=== PATIENT | female | born 1965 | race Caucasian/White ===

== ENCOUNTER 2018-06-17 20:12 | Emergency (ER) | payer SELFPAY ==
[2018-06-17 20:28] VITALS: TEMP 96.2
[2018-06-17] MEDS ORDERED: SOLUMEDROL 125 MG/2 ML 125 MG/2 ML PDS IV ONE (20:29)
[2018-06-17] MEDS ORDERED: ALBUTEROL/IPRATROPIUM 1 VIAL SOL INH ONE (20:29)
[2018-06-17] MEDS ORDERED: AZITHROMYCIN 250 MG TAB PO ONE (20:30)
[2018-06-17] MEDS ORDERED: ALBUTEROL/IPRATROPIUM 1 VIAL SOL ONE (20:38)
[2018-06-17] MEDS ORDERED: AZITHROMYCIN 250 MG TAB ONE (20:38)
[2018-06-17] MEDS ORDERED: SOLUMEDROL 125 MG/2 ML 125 MG/2 ML PDS ONE (20:38)
[2018-06-17 21:10] LABS: BASOPHILS % (AUTO) 1 % (0-3); EOSINOPHILS % (AUTO) 2 % (0-9); HEMATOCRIT 44 % (35-47); HEMOGLOBIN 13.8 gm/dl (12.0-15.5); LYMPHOCYTES % (AUTO) 27.9 % (10-50); MEAN CORPUSCULAR HEMOGLOBIN 26.8 pg (27.0-32.0); MEAN CORPUSCULAR HGB CONC 31.3 gm/dl (32.0-36.0); MEAN CORPUSCULAR VOLUME 85 fL (81-99); MONOCYTES % (AUTO) 10.3 % (0-12); NEUTROPHILS % (AUTO) 58.5 % (37-80)
[2018-06-17 21:11] LABS: INFLUENZA A NEGATIVE (NEGATIVE); INFLUENZA B NEGATIVE (NEGATIVE)
[2018-06-17 21:24] LABS: ALBUMIN 3.6 gm/dl (3.4-5.0); BILIRUBIN,TOTAL 0.3 mg/dl (0.2-1.0); CALCIUM 8.4 mg/dl (8.5-10.1); CARBON DIOXIDE 25.2 mEq/L (21-32); CREATININE 0.77 mg/dl (0.60-1.00); POTASSIUM 3.7 mMol/L (3.5-5.1); TOTAL PROTEIN 7.4 gm/dl (6.4-8.2)
[2018-06-17] MEDS ORDERED: ALBUTEROL NEB SOL 2.5MG/3ML 1 VIAL SOL NEB ONE (21:54)
[2018-06-17] MEDS ORDERED: ALBUTEROL NEB SOL 2.5MG/3ML 1 VIAL SOL ONE (21:56)
[2018-06-17 22:21] VITALS: PULSE 77; RESP 20; O2SAT 97
[2018-06-17 22:23] VITALS: BP 133/83
== END 2018-06-17 22:17 | disposition home or self-care (01) | DRG 204 ==
LOC: ED 20:12
DX: R06.02 Shortness of breath (principal); J45.31 Mild persistent asthma with (acute) exacerbation; R06.2 Wheezing; R05 Cough
CPT/HCPCS: 36415; 71046; 80053; 85025; 87804; 96374; 99283; 99284; J2930; J7613; A9270-GY

== ENCOUNTER 2019-01-31 20:08 | Inpatient (IN) | payer MEDICAID, OTHER ==
[2019-01-31] MEDS ORDERED: ALBUTEROL NEB SOL 2.5MG/3ML 1 VIAL SOL NEB ONE ×2 (20:44→21:39)
[2019-01-31] MEDS ORDERED: SOLUMEDROL 125 MG/2 ML 125 MG/2 ML PDS IV ONE (20:44)
[2019-01-31] MEDS ORDERED: SOLUMEDROL 125 MG/2 ML 125 MG/2 ML PDS ONE (20:46)
[2019-01-31] MEDS ORDERED: ALBUTEROL NEB SOL 2.5MG/3ML 1 VIAL SOL ONE ×2 (20:46→21:40)
[2019-01-31 21:02] LABS: BASOPHILS % (AUTO) 1 % (0-3); EOSINOPHILS % (AUTO) 2 % (0-9); HEMATOCRIT 46 % (35-47); HEMOGLOBIN 14.3 gm/dl (12.0-15.5); MEAN CORPUSCULAR HEMOGLOBIN 28.3 pg (27.0-32.0); MEAN CORPUSCULAR HGB CONC 31.3 gm/dl (32.0-36.0); MEAN CORPUSCULAR VOLUME 90 fL (81-99); MONOCYTES % (AUTO) 5.1 % (0-12); NEUTROPHILS % (AUTO) 75.1 % (37-80)
[2019-01-31 21:13] LABS: CALCIUM 8.3 mg/dl (8.5-10.1); CARBON DIOXIDE 23.6 mEq/L (21-32); CREATININE 0.72 mg/dl (0.60-1.00)
[2019-01-31] MEDS: SODIUM CHLORIDE 0.9% FLUSH 10 ML SOL IV PRN (21:40)
[2019-01-31] MEDS ORDERED: AZITHROMYCIN 500 MG PDS IV SCH (22:15)
[2019-01-31] MEDS ORDERED: AZITHROMYCIN 500 MG PDS IV ONE (22:20)
[2019-01-31] MEDS ORDERED: ALBUTEROL/IPRATROPIUM 1 VIAL SOL INH PRN (22:55)
[2019-01-31] MEDS ORDERED: SODIUM CHLORIDE 0.9% 1000ML 1,000 ML IV ONE (23:00)
[2019-01-31] MEDS ORDERED: ALBUTEROL NEB SOL 2.5MG/3ML 1 VIAL SOL NEB PRN (23:39)
[2019-02-01] MEDS ORDERED: ALBUTEROL HFA 60 PUFF/INHALER INH PRN (00:10)
[2019-02-01] MEDS: ALBUTEROL/IPRATROPIUM 1 VIAL SOL INH SCH ×4 (01:13→20:37)
[2019-02-01] MEDS: SOLUMEDROL 125 MG/2 ML 125 MG/2 ML PDS IV SCH ×4 (03:07→20:40)
[2019-02-01 07:34] LABS: BASOPHILS % (AUTO) 0 % (0-3); CALCIUM 8.3 mg/dl (8.5-10.1); CARBON DIOXIDE 23.3 mEq/L (21-32); CREATININE 0.52 mg/dl (0.60-1.00); EOSINOPHILS % (AUTO) 0 % (0-9); HEMATOCRIT 44 % (35-47); HEMOGLOBIN 13.4 gm/dl (12.0-15.5); LYMPHOCYTES % (AUTO) 14.9 % (10-50); MEAN CORPUSCULAR HGB CONC 30.6 gm/dl (32.0-36.0); MEAN CORPUSCULAR VOLUME 91 fL (81-99); MONOCYTES % (AUTO) 1.1 % (0-12); NEUTROPHILS % (AUTO) 83.8 % (37-80)
[2019-02-01] MEDS: SODIUM CHLORIDE 0.9% FLUSH 10 ML SOL IV SCH ×3 (09:30→20:41)
[2019-02-01] MEDS: TOPIRAMATE 50 MG TAB PO SCH ×2 (11:26→20:47)
[2019-02-01] MEDS: BUDESONIDE/FORMOTEROL 160/4.5 AER INH SCH ×2 (11:26→20:42)
[2019-02-01] MEDS: ACETAMINOPHEN 500 MG 500 MG TAB PO PRN (12:44)
[2019-02-01] MEDS: SODIUM CHLORIDE 0.9% FLUSH 10 ML SOL IV PRN (14:44)
[2019-02-02] MEDS: ALBUTEROL/IPRATROPIUM 1 VIAL SOL INH SCH ×4 (02:17→20:19)
[2019-02-02] MEDS: SODIUM CHLORIDE 0.9% FLUSH 10 ML SOL IV SCH ×4 (02:19→20:27)
[2019-02-02] MEDS: SOLUMEDROL 125 MG/2 ML 125 MG/2 ML PDS IV SCH ×4 (02:20→20:24)
[2019-02-02] MEDS ORDERED: CEFTRIAXONE 1 GM PDS ONE ×2 (09:05→20:09)
[2019-02-02] MEDS ORDERED: SODIUM CHLORIDE 0.9% 50 ML 50 ML IV ONE (09:05)
[2019-02-02] MEDS: CEFTRIAXONE 1 GM PDS 1 GM in SODIUM CHLORIDE 0.9% 50 ML 50 ML IV SCH ×2 (09:21→20:24)
[2019-02-02] MEDS: TOPIRAMATE 50 MG TAB PO SCH ×2 (09:22→20:25)
[2019-02-02] MEDS: BUDESONIDE/FORMOTEROL 160/4.5 AER INH SCH ×2 (09:45→20:24)
[2019-02-02 12:47] LABS: APPEARANCE,URINE Cloudy; BILIRUBIN,URINE NEGATIVE (NEGATIVE); COLOR,URINE Yellow; GLUCOSE, URINE (UA) NEGATIVE (NEGATIVE); KETONES,URINE NEGATIVE (NEGATIVE); LEUKOCYTE ESTERASE ,URINE TRACE (NEGATIVE); NITRATE,URINE NEGATIVE (NEGATIVE); OCCULT BLOOD,URINE NEGATIVE (NEG-TRACE); UROBILINOGEN,URINE 0.2 (0.2-1.0 EU)
[2019-02-02 12:56] LABS: BACTERIA 2+ (< 1+); CRYSTALS NEGATIVE (0-3 AVE/HPF); EPITHELIAL CELLS 0-2 (SQUAMOUS); RBC,URINE NEGATIVE (0-3AV/HPF); WBC,URINE 15-25 (0-5AV/HPF)
[2019-02-02] MEDS: SODIUM CHLORIDE 0.9% FLUSH 10 ML SOL IV PRN (14:11)
[2019-02-03] MEDS: SODIUM CHLORIDE 0.9% FLUSH 10 ML SOL IV SCH ×3 (00:59→17:18)
[2019-02-03] MEDS: ALBUTEROL/IPRATROPIUM 1 VIAL SOL INH SCH ×4 (02:23→19:55)
[2019-02-03] MEDS: SOLUMEDROL 125 MG/2 ML 125 MG/2 ML PDS IV SCH ×2 (02:23→08:29)
[2019-02-03] MEDS: ACETAMINOPHEN 500 MG 500 MG TAB PO PRN (02:27)
[2019-02-03] MEDS: SODIUM CHLORIDE 0.9% FLUSH 10 ML SOL IV PRN ×2 (02:30→21:23)
[2019-02-03 07:31] LABS: BASOPHILS % (AUTO) 0 % (0-3); EOSINOPHILS % (AUTO) 0 % (0-9); HEMATOCRIT 42 % (35-47); HEMOGLOBIN 13.1 gm/dl (12.0-15.5); LYMPHOCYTES % (AUTO) 7.5 % (10-50); MEAN CORPUSCULAR VOLUME 90 fL (81-99); MONOCYTES % (AUTO) 2.6 % (0-12); NEUTROPHILS % (AUTO) 89.5 % (37-80)
[2019-02-03 07:35] LABS: CALCIUM 8.9 mg/dl (8.5-10.1); CREATININE 0.69 mg/dl (0.60-1.00)
[2019-02-03] MEDS: TOPIRAMATE 50 MG TAB PO SCH (08:32)
[2019-02-03] MEDS: BUDESONIDE/FORMOTEROL 160/4.5 AER INH SCH ×2 (08:32→21:22)
[2019-02-03] MEDS: PREDNISONE 20 MG TAB PO SCH (10:06)
[2019-02-03] MEDS: AUGMENTIN(FRIDGE) 400 MG/5 ML PO SCH ×2 (10:07→21:22)
[2019-02-03] MEDS: BUPROPION XL 150 MG T24 PO SCH (16:13)
[2019-02-03] MEDS: TOPIRAMATE 25 MG TABLET PO SCH (21:22)
[2019-02-04] MEDS: ALBUTEROL/IPRATROPIUM 1 VIAL SOL INH SCH ×2 (03:20→08:05)
[2019-02-04] MEDS: AUGMENTIN(FRIDGE) 400 MG/5 ML PO SCH (08:09)
[2019-02-04 08:10] VITALS: O2SAT 93
[2019-02-04 08:12] VITALS: BP 144/85; RESP 18; TEMP 97.8
[2019-02-04 08:27] VITALS: PULSE 72
[2019-02-04] MEDS: BUDESONIDE/FORMOTEROL 160/4.5 AER INH SCH (08:54)
[2019-02-04] MEDS: TOPIRAMATE 25 MG TABLET PO SCH (08:55)
[2019-02-04] MEDS: BUPROPION XL 150 MG T24 PO SCH (08:56)
[2019-02-04] MEDS: PREDNISONE 20 MG TAB PO SCH (08:56)
== END 2019-02-04 12:15 | disposition home or self-care (01) | DRG 141 ==
LOC: ED 20:08 → ACUTE CARE 22:22 → UNDOADMOB 22:22 → ACUTE CARE 22:30 → OBSVTOIN 02-02 08:08 → INTOOBSV 02-02 08:08 → ACUTE CARE 02-02 08:30 → INTOOBSV 02-02 08:30 → UNDOADMOB 02-02 08:30 → OBSVTOIN 02-02 08:30 → UNDODISIN 02-04 12:15
PROVIDERS: ADMIT Family Medicine; ATTEND Family Medicine
DX: J45.901 Unspecified asthma with (acute) exacerbation (principal); J44.1 Chronic obstructive pulmonary disease with (acute) exacerbation; R05 Cough; R06.02 Shortness of breath; R06.00 Dyspnea, unspecified; Z72.0 Tobacco use
CPT/HCPCS: 36415; 71046; 80048; 81001; 85025; 87077; 87088; 87186; 87430; 94150; 94664; 96374; 99070; 99219; 99224; 99284; J0456; J0696; J2930; J7613; A9270-GY

== ENCOUNTER 2019-02-22 12:08 | Observation (INO) | payer OTHER | END 2019-02-23 19:05 | disposition home or self-care (01) | LOC: ED 12:08 → ACUTE CARE 15:10 ==